=== PATIENT | male | born 1935 | race Caucasian/White ===

== ENCOUNTER 2018-01-29 22:38 | Inpatient (IN) | payer MEDICARE, OTHER ==
[~2018-01-29] VITALS: Ht 180.3 cm; Wt 115.0 kg
[2018-01-30 00:04] LABS: BASOPHILS % (AUTO) 0.4 % (0-1); EOSINOPHILS # (AUTO) 0.3 X10'3 (0-0.9); EOSINOPHILS % (AUTO) 4.8 % (0-6); HEMATOCRIT 45.2 % (42.0-52.0); HEMOGLOBIN 15.3 g/dl (14.0-17.9); LYMPHOCYTES # (AUTO) 1.8 X10'3 (1.1-4.8); LYMPHOCYTES % (AUTO) 28.4 % (21-51); MEAN CORPUSCULAR HEMOGLOBIN 31.3 PG (27.0-31.0); MEAN CORPUSCULAR VOLUME 92.3 FL (78-98); MEAN PLATELET VOLUME 9.8 FL (7.4-10.4); MONOCYTES # (AUTO) 0.6 X10'3 (0-0.9); MONOCYTES % (AUTO) 9.3 % (2-12); NEUTROPHILS # (AUTO) 3.7 X10'3 (1.8-7.7); NEUTROPHILS % (AUTO) 57.1 % (42-75); PLATELET COUNT 158 X10'3 (140-440); RED BLOOD COUNT 4.89 X10'6 (4.70-6.10); RED CELL DISTRIBUTION WIDTH 13.9 % (11.5-14.5); WHITE BLOOD COUNT 6.5 X10'3 (4.5-11.0)
[2018-01-30 00:19] LABS: ALANINE AMINOTRANSFERASE 25 U/L (12-78); ALBUMIN 3.3 G/DL (3.4-5.0); ALBUMIN/GLOBULIN RATIO 0.9 (1.1-1.5); ALKALINE PHOSPHATASE 48 IU/L (46-116); ANION GAP 6 (8-16); ASPARTATE AMINO TRANSFERASE 25 U/L (10-37); BILIRUBIN,TOTAL 0.6 MG/DL (0.1-1.0); BLOOD UREA NITROGEN 29 MG/DL (7-18); BUN/CREATININE RATIO 16.5 (5.4-32.0); CALCIUM 9.1 MG/DL (8.5-10.1); CHLORIDE 106 MMOL/L (99-107); CREATININE 1.76 MG/DL (0.60-1.10); GLUCOSE 111 MG/DL (70-104); SODIUM 143 MMOL/L (135-145); TOTAL CARBON DIOXIDE 30.8 MMOL/L (24-32); TOTAL PROTEIN 6.9 G/DL (6.4-8.2); eGFR 37 ML/MIN
[2018-01-30] MEDS ORDERED: aspirin 81mg tab.chew PO ONE (00:25)
[2018-01-30] MEDS ORDERED: enoxaparin 100mg/ml syringe SUBCUT ONE (00:30)
[2018-01-30 00:35] LABS: PARTIAL THROMBOPLASTIN TIME 27 SECONDS (22-32); PROTHROMBIN TIME 10.7 SECONDS (9.0-12.0)
[2018-01-30] MEDS ORDERED: acetaminophen 325mg tablet PO PRN ×2 (00:40)
[2018-01-30] MEDS ORDERED: nitroGLYCERIN 0.4mg SUBLingual tab SL PRN (00:40)
[2018-01-30] MEDS ORDERED: morphine 4 MG/ML inj SYRINge IV PRN ×2 (00:40)
[2018-01-30] MEDS ORDERED: XAL0.005OS EACHEYE (00:47)
[2018-01-30] MEDS ORDERED: DORZ10DR2 EACHEYE (00:47)
[2018-01-30 01:05] LABS: CHOL/HDL RATIO 4.7 (0.00-4.99); CHOLESTEROL 179 MG/DL (0-200); HDL CHOLESTEROL 38 MG/DL (35-60); LDL CHOLESTEROL 122 MG/DL (50-100); TRIGLYCERIDES 110 MG/DL (20-135)
[2018-01-30 01:06] LABS: HEMOGLOBIN A1C 5.4 % (4.5-6.2)
[2018-01-30 01:50] VITALS: BP 165/70
[2018-01-30 06:00] VITALS: BP 156/75
[2018-01-30] MEDS ORDERED: aspirin 325mg tablet PO SCH (08:00)
[2018-01-30] MEDS: metoprolol tartrate 12.5mg (1/2 tablet) PO SCH ×2 (08:00→19:58)
[2018-01-30] MEDS: atorvastatin 10mg tablet PO SCH (08:00)
[2018-01-30 08:33] LABS: BASOPHILS % (AUTO) 0.5 % (0-1); EOSINOPHILS # (AUTO) 0.3 X10'3 (0-0.9); EOSINOPHILS % (AUTO) 4.5 % (0-6); HEMATOCRIT 45.5 % (42.0-52.0); HEMOGLOBIN 15.4 g/dl (14.0-17.9); LYMPHOCYTES # (AUTO) 2.3 X10'3 (1.1-4.8); LYMPHOCYTES % (AUTO) 32.9 % (21-51); MEAN CORPUSCULAR HEMOGLOBIN 31.4 PG (27.0-31.0); MEAN CORPUSCULAR HGB CONC 33.8 % (33.0-36.5); MEAN CORPUSCULAR VOLUME 92.9 FL (78-98); MEAN PLATELET VOLUME 10.6 FL (7.4-10.4); MONOCYTES # (AUTO) 0.6 X10'3 (0-0.9); MONOCYTES % (AUTO) 8.9 % (2-12); NEUTROPHILS # (AUTO) 3.7 X10'3 (1.8-7.7); NEUTROPHILS % (AUTO) 53.2 % (42-75); PLATELET COUNT 152 X10'3 (140-440); RED CELL DISTRIBUTION WIDTH 14.1 % (11.5-14.5); WHITE BLOOD COUNT 6.9 X10'3 (4.5-11.0)
[2018-01-30] MEDS: enoxaparin 100mg/ml syringe SUBCUT SCH ×2 (08:39→20:11)
[2018-01-30] MEDS: aspirin 81mg tab.chew PO SCH (08:39)
[2018-01-30 08:40] LABS: ALBUMIN 3.2 G/DL (3.4-5.0); ANION GAP 10 (8-16); BLOOD UREA NITROGEN 26 MG/DL (7-18); BUN/CREATININE RATIO 16.3 (5.4-32.0); CALCIUM 8.7 MG/DL (8.5-10.1); CHLORIDE 107 MMOL/L (99-107); GLUCOSE 85 MG/DL (70-104); POTASSIUM 4.1 MMOL/L (3.5-5.1); SODIUM 142 MMOL/L (135-145); TOTAL CARBON DIOXIDE 25.1 MMOL/L (24-32); eGFR 42 ML/MIN
[2018-01-30] MEDS: losartan 50mg tablet PO SCH (08:50)
[2018-01-30 08:52] LABS: LARGE PLATELETS FEW; PLATELET ESTIMATE NORMAL
[2018-01-30] MEDS: normal saline 1000ml 1,000 ML IV SCH (09:20)
[2018-01-30 11:00] VITALS: BP 153/84
[2018-01-30 15:00] VITALS: BP 148/69
[2018-01-30 19:00] VITALS: BP 161/65
[2018-01-31] VITALS (15 sets, daily range): BP systolic 116–187; BP diastolic 61–87
[2018-01-31] MEDS: normal saline 1000ml 1,000 ML IV SCH ×2 (04:29→18:16)
[2018-01-31 05:18] LABS: BASOPHILS % (AUTO) 0.4 % (0-1); EOSINOPHILS # (AUTO) 0.3 X10'3 (0-0.9); EOSINOPHILS % (AUTO) 4.1 % (0-6); HEMATOCRIT 45.8 % (42.0-52.0); HEMOGLOBIN 15.4 g/dl (14.0-17.9); LYMPHOCYTES % (AUTO) 30.4 % (21-51); MEAN CORPUSCULAR HEMOGLOBIN 31.1 PG (27.0-31.0); MEAN CORPUSCULAR HGB CONC 33.6 % (33.0-36.5); MEAN CORPUSCULAR VOLUME 92.5 FL (78-98); MEAN PLATELET VOLUME 9.8 FL (7.4-10.4); MONOCYTES # (AUTO) 0.5 X10'3 (0-0.9); NEUTROPHILS # (AUTO) 3.7 X10'3 (1.8-7.7); NEUTROPHILS % (AUTO) 57.1 % (42-75); PLATELET COUNT 159 X10'3 (140-440); RED BLOOD COUNT 4.95 X10'6 (4.70-6.10); RED CELL DISTRIBUTION WIDTH 13.6 % (11.5-14.5); WHITE BLOOD COUNT 6.6 X10'3 (4.5-11.0)
[2018-01-31 06:20] LABS: ALANINE AMINOTRANSFERASE 23 U/L (12-78); ALBUMIN 3.1 G/DL (3.4-5.0); ALBUMIN/GLOBULIN RATIO 0.9 (1.1-1.5); ALKALINE PHOSPHATASE 45 IU/L (46-116); ANION GAP 8 (8-16); ASPARTATE AMINO TRANSFERASE 23 U/L (10-37); BILIRUBIN,TOTAL 0.9 MG/DL (0.1-1.0); BLOOD UREA NITROGEN 26 MG/DL (7-18); BUN/CREATININE RATIO 17.2 (5.4-32.0); CALCIUM 8.6 MG/DL (8.5-10.1); CHLORIDE 106 MMOL/L (99-107); CREATININE 1.51 MG/DL (0.60-1.10); GLUCOSE 99 MG/DL (70-104); PHOSPHORUS 3.1 MG/DL (2.3-4.5); POTASSIUM 3.9 MMOL/L (3.5-5.1); SODIUM 139 MMOL/L (135-145); TOTAL CARBON DIOXIDE 24.9 MMOL/L (24-32); TOTAL PROTEIN 6.7 G/DL (6.4-8.2); eGFR 45 ML/MIN
[2018-01-31] MEDS: enoxaparin 100mg/ml syringe SUBCUT SCH ×2 (07:10→20:07)
[2018-01-31] MEDS: metoprolol tartrate 12.5mg (1/2 tablet) PO SCH ×2 (07:35→20:08)
[2018-01-31] MEDS: aspirin 81mg tab.chew PO SCH (07:37)
[2018-01-31] MEDS: atorvastatin 10mg tablet PO SCH (07:38)
[2018-01-31] MEDS: losartan 50mg tablet PO SCH ×2 (07:38→13:21)
[2018-01-31] MEDS ORDERED: lisinopril 2.5mg tablet PO SCH (08:00)
[2018-01-31] MEDS ORDERED: losartan 50mg tablet PO SCH (08:00)
[2018-01-31] MEDS ORDERED: iohexol 350MG/ML 100ml bottle IV ONE (09:40)
[2018-01-31] MEDS ORDERED: LIDOcaine 1% (10mg/ml) 2ml vial ONE (09:40)
[2018-01-31] MEDS ORDERED: iohexol 350 MG/ML 50ML vial IV ONE (09:40)
[2018-01-31] MEDS ORDERED: midazolam 2 mg/2 ml injection ONE (10:00)
[2018-01-31] MEDS ORDERED: fentaNYL/PF 50MCG/1 ML 2ML syringe ONE (10:00)
[2018-01-31] MEDS ORDERED: diphenhydrAMINE 50 mg/ml inj ONE (10:00)
[2018-01-31] MEDS ORDERED: nitroGLYCERIN-Tridil 50MG/D5W 250 ML IV ONE (10:19)
[2018-01-31] MEDS ORDERED: hydrALAZINE 20mg/ml inj. IV ONE (10:29)
[2018-01-31] MEDS ORDERED: acetaminophen 325mg tablet PO PRN (11:20)
[2018-01-31] MEDS ORDERED: ondansetron/PF 4mg/2ml inj IV PRN (11:20)
[2018-01-31] MEDS ORDERED: OXAZEpam 15mg capsule PO PRN (11:20)
[2018-01-31] MEDS ORDERED: nitroGLYCERIN 0.4mg SUBLingual tab SL PRN (11:20)
[2018-01-31] MEDS ORDERED: HYDROcodone/acetaminophen 10/325mg tab PO PRN (11:20)
[2018-01-31] MEDS ORDERED: HYDROcodone/acetaminophen 5mg/325mg tablet PO PRN (11:20)
[2018-01-31] MEDS ORDERED: proCHLORperazine 10 MG/2 ml inj IV PRN (11:20)
[2018-01-31] MEDS ORDERED: MESSAGE TO NURSING PO ONE ×4 (16:15)
[2018-01-31 16:58] LABS: HEMATOCRIT 47.7 % (42.0-52.0); MEAN CORPUSCULAR HEMOGLOBIN 31.2 PG (27.0-31.0); MEAN CORPUSCULAR HGB CONC 33.5 % (33.0-36.5); MEAN CORPUSCULAR VOLUME 93.3 FL (78-98); PLATELET COUNT 171 X10'3 (140-440); RED BLOOD COUNT 5.11 X10'6 (4.70-6.10); RED CELL DISTRIBUTION WIDTH 13.8 % (11.5-14.5); WHITE BLOOD COUNT 6.8 X10'3 (4.5-11.0)
[2018-01-31 17:09] LABS: INR 1.1 INR; PARTIAL THROMBOPLASTIN TIME 28 SECONDS (22-32); PROTHROMBIN TIME 10.9 SECONDS (9.0-12.0)
[2018-01-31 17:14] LABS: ALBUMIN 3.2 G/DL (3.4-5.0); ANION GAP 9 (8-16); BILIRUBIN,TOTAL 0.9 MG/DL (0.1-1.0); BLOOD UREA NITROGEN 23 MG/DL (7-18); BUN/CREATININE RATIO 16.8 (5.4-32.0); CALCIUM 8.6 MG/DL (8.5-10.1); CHLORIDE 105 MMOL/L (99-107); CREATININE 1.37 MG/DL (0.60-1.10); GLUCOSE 97 MG/DL (70-104); POTASSIUM 3.9 MMOL/L (3.5-5.1); SODIUM 140 MMOL/L (135-145); TOTAL CARBON DIOXIDE 26.1 MMOL/L (24-32); TOTAL PROTEIN 6.8 G/DL (6.4-8.2); eGFR 50 ML/MIN
[2018-01-31 17:15] LABS: ALANINE AMINOTRANSFERASE 24 U/L (12-78); ALBUMIN/GLOBULIN RATIO 0.9 (1.1-1.5); ALKALINE PHOSPHATASE 45 IU/L (46-116); ASPARTATE AMINO TRANSFERASE 22 U/L (10-37)
[2018-01-31] MEDS: amLODIPine 2.5mg tablet PO SCH (20:00)
[2018-02-01 03:00] VITALS: BP 121/62
[2018-02-01 05:12] LABS: BASOPHILS % (AUTO) 0.3 % (0-1); EOSINOPHILS # (AUTO) 0.3 X10'3 (0-0.9); EOSINOPHILS % (AUTO) 3.6 % (0-6); HEMATOCRIT 44.7 % (42.0-52.0); LYMPHOCYTES # (AUTO) 1.9 X10'3 (1.1-4.8); LYMPHOCYTES % (AUTO) 25.9 % (21-51); MEAN CORPUSCULAR HEMOGLOBIN 31.2 PG (27.0-31.0); MEAN CORPUSCULAR HGB CONC 33.5 % (33.0-36.5); MEAN CORPUSCULAR VOLUME 93.2 FL (78-98); MEAN PLATELET VOLUME 9.5 FL (7.4-10.4); MONOCYTES # (AUTO) 0.5 X10'3 (0-0.9); MONOCYTES % (AUTO) 7.4 % (2-12); NEUTROPHILS # (AUTO) 4.5 X10'3 (1.8-7.7); NEUTROPHILS % (AUTO) 62.8 % (42-75); PLATELET COUNT 157 X10'3 (140-440); RED CELL DISTRIBUTION WIDTH 13.9 % (11.5-14.5); WHITE BLOOD COUNT 7.2 X10'3 (4.5-11.0)
[2018-02-01 05:34] LABS: ANION GAP 10 (8-16); BLOOD UREA NITROGEN 23 MG/DL (7-18); BUN/CREATININE RATIO 14.4 (5.4-32.0); CALCIUM 8.4 MG/DL (8.5-10.1); CHLORIDE 106 MMOL/L (99-107); GLUCOSE 92 MG/DL (70-104); SODIUM 140 MMOL/L (135-145); TOTAL CARBON DIOXIDE 24.5 MMOL/L (24-32); eGFR 42 ML/MIN
[2018-02-01 06:30] VITALS: BP 148/74
[2018-02-01] MEDS: enoxaparin 100mg/ml syringe SUBCUT SCH (07:17)
[2018-02-01] MEDS ORDERED: vancomycin/NS 1 GM ADD-VANTAGE 250 ML IV ONE (08:00)
[2018-02-01] MEDS ORDERED: cefazolin/dext.iso 2gm/50ml 50 ML IV ONE (08:00)
[2018-02-01] MEDS: metoprolol tartrate 12.5mg (1/2 tablet) PO SCH (08:00)
[2018-02-01] MEDS: amLODIPine 2.5mg tablet PO SCH ×2 (08:47→20:59)
[2018-02-01] MEDS: atorvastatin 10mg tablet PO SCH (08:47)
[2018-02-01] MEDS: aspirin 81mg tab.chew PO SCH (08:48)
[2018-02-01] MEDS: losartan 50mg tablet PO SCH (08:48)
[2018-02-01] MEDS ORDERED: MESSAGE TO NURSING PO ONE (10:00)
[2018-02-01 11:00] VITALS: BP 132/53
[2018-02-01] MEDS ORDERED: ringers solution, lacted 1,000 ML IV ONE (11:33)
[2018-02-01] MEDS: normal saline 1000ml 1,000 ML IV SCH (13:19)
[2018-02-01 15:00] VITALS: BP 157/67
[2018-02-01 19:00] VITALS: BP 158/61
[2018-02-01] MEDS: DORZOLAMIDE 2% EACHEYE SCH (20:00)
[2018-02-01] MEDS: OPTH EACHEYE SCH ×2 (20:00→20:59)
[2018-02-01] MEDS: XALATAN 0.005% EACHEYE SCH (20:59)
[2018-02-01 22:00] VITALS: BP 149/72
[2018-02-02 02:00] VITALS: BP 127/46
[2018-02-02 05:14] LABS: BASOPHILS % (AUTO) 0.4 % (0-1); EOSINOPHILS # (AUTO) 0.3 X10'3 (0-0.9); EOSINOPHILS % (AUTO) 3.9 % (0-6); HEMATOCRIT 44.4 % (42.0-52.0); HEMOGLOBIN 15.1 g/dl (14.0-17.9); LYMPHOCYTES # (AUTO) 1.8 X10'3 (1.1-4.8); LYMPHOCYTES % (AUTO) 23.6 % (21-51); MEAN CORPUSCULAR HEMOGLOBIN 31.5 PG (27.0-31.0); MEAN CORPUSCULAR VOLUME 92.7 FL (78-98); MEAN PLATELET VOLUME 9.7 FL (7.4-10.4); MONOCYTES # (AUTO) 0.7 X10'3 (0-0.9); MONOCYTES % (AUTO) 8.7 % (2-12); NEUTROPHILS # (AUTO) 4.8 X10'3 (1.8-7.7); NEUTROPHILS % (AUTO) 63.4 % (42-75); PLATELET COUNT 148 X10'3 (140-440); RED CELL DISTRIBUTION WIDTH 13.6 % (11.5-14.5); WHITE BLOOD COUNT 7.5 X10'3 (4.5-11.0)
[2018-02-02 05:29] LABS: PROTHROMBIN TIME 10.6 SECONDS (9.0-12.0)
[2018-02-02] MEDS ORDERED: vancomycin/NS 1 GM ADD-VANTAGE 250 ML IV ONE (05:30)
[2018-02-02] MEDS ORDERED: Cefazolin 2GM/100ML NS IVPB 100 ML IV ONE (05:30)
[2018-02-02 05:36] LABS: ALBUMIN 3.2 G/DL (3.4-5.0); ANION GAP 7 (8-16); BLOOD UREA NITROGEN 20 MG/DL (7-18); BUN/CREATININE RATIO 12.3 (5.4-32.0); CALCIUM 8.9 MG/DL (8.5-10.1); CHLORIDE 107 MMOL/L (99-107); CREATININE 1.63 MG/DL (0.60-1.10); GLUCOSE 98 MG/DL (70-104); POTASSIUM 4.3 MMOL/L (3.5-5.1); SODIUM 142 MMOL/L (135-145); TOTAL CARBON DIOXIDE 28.5 MMOL/L (24-32); eGFR 41 ML/MIN
[2018-02-02 06:00] VITALS: BP 148/65
[2018-02-02] MEDS ORDERED: famotidine 20mg tablet PO ONE ×2 (06:00→17:55)
[2018-02-02] MEDS ORDERED: LORazepam 2 mg/ml vial IV ONE (06:00)
[2018-02-02] MEDS ORDERED: ringers solution, lacted 1,000 ML IV SCH (06:00)
[2018-02-02] MEDS ORDERED: levoTHYROXINE 25mcg tablet PO SCH (07:00)
[2018-02-02] MEDS: amLODIPine 2.5mg tablet PO SCH ×2 (07:02→20:00)
[2018-02-02] MEDS: losartan 50mg tablet PO SCH (07:02)
[2018-02-02] MEDS: atorvastatin 10mg tablet PO SCH (07:24)
[2018-02-02] MEDS: OPTH EACHEYE SCH ×3 (07:25→21:00)
[2018-02-02] MEDS: DORZOLAMIDE 2% EACHEYE SCH ×2 (07:25→20:00)
[2018-02-02] MEDS: aspirin 81mg tab.chew PO SCH (07:30)
[2018-02-02] MEDS ORDERED: mupirocin 2% ointment 22GM NS SCH (08:00)
[2018-02-02] MEDS: insulin regular, human 100 UNITS in normal saline 100ml IV soln 99 ML IV SCH ×2 (09:08)
[2018-02-02] MEDS ORDERED: insulin Lispro (HumaLOG) vial - multi-dose SQ PRN (09:10)
[2018-02-02] MEDS ORDERED: dextrose 50%-water 50ml dispensing syringe IV PRN ×2 (09:10→23:25)
[2018-02-02 10:08] VITALS: BP 170/75
[2018-02-02 11:00] VITALS: BP 147/69
[2018-02-02 15:00] VITALS: BP 162/70
[2018-02-02] MEDS: normal saline 1000ml 1,000 ML IV SCH (16:08)
[2018-02-02] MEDS ORDERED: MIDAZolam 1mg/ml 10ml vial ONE (17:36)
[2018-02-02] MEDS ORDERED: SUFENTANIL CITRATE 50 MCG/ML 2ml ampule IV ONE (17:36)
[2018-02-02] MEDS ORDERED: propofol inj 20 ML IV ONE (17:39)
[2018-02-02] MEDS ORDERED: pancuronium br 1mg/ml inj IV ONE (17:39)
[2018-02-02] MEDS ORDERED: albumin (Human) 5% 250ml 250 ML IV ONE ×3 (17:39→23:26)
[2018-02-02] MEDS ORDERED: LIDOcaine 2% (20mg/ml) 5ml vial ONE (17:39)
[2018-02-02] MEDS ORDERED: aminocaproic acid 250 MG/1 ML inj. ONE (18:15)
[2018-02-02] MEDS ORDERED: sevoflurane 250ml liquid IH ONE (18:15)
[2018-02-02] MEDS ORDERED: papaverine 30 mg/ml 2ml inj. IA ONE (19:00)
[2018-02-02] MEDS ORDERED: heparin 10,000 units/1 ML INJ IR ONE (19:00)
[2018-02-02 19:06] LABS: ABG BASE EXCESS -1.7 mmol/L (-2.0-3.0); ABG HCO3 21.5 mmol/L (22.0-26.0); ABG OXYGEN SATURATION 99.6 % (95-98); ABG PCO2 32.4 mmHg (35.0-45.0); CL (ABG) 107 mmol/L (99-107); FCOHb 0.9 % (0.5-1.5); FMetHb 0.4 % (0.3-1.12); FO2Hb 98.3 % (94-100); GLUCOSE (ABG) 87 mg/dl (70-105); K (ABG) 3.8 mmol/L (3.3-5.1); NA (ABG) 137 mmol/L (135-145); TOTAL HEMOGLOBIN 14.2 G/dl (14.0-18.0)
[2018-02-02 19:16] LABS: ACT @ 1.70 U 310 SEC (193-297); ACT @ 2.84 U 457 SEC (260-420); BASELINE ACT 161 SEC (101-148)
[2018-02-02 20:00] LABS: ABG BASE EXCESS VENOUS -2.7 mmol/L; ABG HCO3 VENOUS 21.9 mmol/L; ABG PCO2 VENOUS 37.7 mmHg; ABG PO2 VENOUS 46.3 mmHg; CL (ABG) 106 mmol/L (99-107); FHHb VENOUS 16.2 %; FMetHb VENOUS 0.2 %; FO2Hb VENOUS 82.6 %; GLUCOSE (ABG) 93 mg/dl (70-105); IONIZED CA (ABG) 1.11 mmol/L (1.03-1.32); NA (ABG) 137 mmol/L (135-145); TOTAL HEMOGLOBIN 13.8 G/dl (14.0-18.0)
[2018-02-02 20:30] LABS: ABG BASE EXCESS -2.7 mmol/L (-2.0-3.0); ABG HCO3 20.7 mmol/L (22.0-26.0); ABG OXYGEN SATURATION 99.3 % (95-98); ABG PCO2 31.1 mmHg (35.0-45.0); ABG PH 7.441 (7.350-7.450); ABG PO2 359.6 mmHg (60.0-100.0); CL (ABG) 105 mmol/L (99-107); FCOHb 0.3 % (0.5-1.5); FMetHb 0.3 % (0.3-1.12); FO2Hb 98.7 % (94-100); GLUCOSE (ABG) 89 mg/dl (70-105); IONIZED CA (ABG) 1.01 mmol/L (1.03-1.32); K (ABG) 4.9 mmol/L (3.3-5.1); NA (ABG) 133 mmol/L (135-145); TOTAL HEMOGLOBIN 10.7 G/dl (14.0-18.0)
[2018-02-02 20:45] LABS: ABG BASE EXCESS -0.1 mmol/L (-2.0-3.0); ABG HCO3 24.1 mmol/L (22.0-26.0); ABG OXYGEN SATURATION 99.2 % (95-98); ABG PCO2 37.5 mmHg (35.0-45.0); ABG PH 7.425 (7.350-7.450); ABG PO2 347.1 mmHg (60.0-100.0); CL (ABG) 106 mmol/L (99-107); FMetHb 0.5 % (0.3-1.12); FO2Hb 98.7 % (94-100); GLUCOSE (ABG) 96 mg/dl (70-105); IONIZED CA (ABG) 1.02 mmol/L (1.03-1.32); K (ABG) 4.9 mmol/L (3.3-5.1); NA (ABG) 134 mmol/L (135-145); TOTAL HEMOGLOBIN 10.7 G/dl (14.0-18.0)
[2018-02-02 20:55] LABS: ABG BASE EXCESS -0.5 mmol/L (-2.0-3.0); ABG OXYGEN SATURATION 99.2 % (95-98); ABG PCO2 38.5 mmHg (35.0-45.0); ABG PH 7.412 (7.350-7.450); CL (ABG) 106 mmol/L (99-107); FCOHb 0.1 % (0.5-1.5); FMetHb 0.5 % (0.3-1.12); FO2Hb 98.6 % (94-100); GLUCOSE (ABG) 104 mg/dl (70-105); IONIZED CA (ABG) 1.03 mmol/L (1.03-1.32); K (ABG) 4.7 mmol/L (3.3-5.1); NA (ABG) 135 mmol/L (135-145)
[2018-02-02] MEDS: XALATAN 0.005% EACHEYE SCH (21:00)
[2018-02-02 21:11] LABS: ABG BASE EXCESS VENOUS -1.4 mmol/L; ABG HCO3 VENOUS 23.6 mmol/L; ABG PCO2 VENOUS 40.6 mmHg; ABG PO2 VENOUS 51.8 mmHg; CL (ABG) 105 mmol/L (99-107); FCOHb VENOUS 0.3 %; FHHb VENOUS 12.8 %; FMetHb VENOUS 0.4 %; FO2Hb VENOUS 86.5 %; GLUCOSE (ABG) 114 mg/dl (70-105); IONIZED CA (ABG) 0.83 mmol/L (1.03-1.32); K (ABG) 4.6 mmol/L (3.3-5.1); NA (ABG) 136 mmol/L (135-145); TOTAL HEMOGLOBIN 11.1 G/dl (14.0-18.0)
[2018-02-02 21:31] LABS: ABG BASE EXCESS -1.3 mmol/L (-2.0-3.0); ABG HCO3 23.6 mmol/L (22.0-26.0); ABG OXYGEN SATURATION 99.2 % (95-98); ABG PCO2 39.8 mmHg (35.0-45.0); ABG PO2 354.4 mmHg (60.0-100.0); CL (ABG) 107 mmol/L (99-107); FCOHb 0.2 % (0.5-1.5); FMetHb 0.5 % (0.3-1.12); FO2Hb 98.5 % (94-100); GLUCOSE (ABG) 131 mg/dl (70-105); IONIZED CA (ABG) 1.05 mmol/L (1.03-1.32); K (ABG) 4.7 mmol/L (3.3-5.1); NA (ABG) 136 mmol/L (135-145); TOTAL HEMOGLOBIN 11.3 G/dl (14.0-18.0)
[2018-02-02 21:55] LABS: ABG BASE EXCESS -2.5 mmol/L (-2.0-3.0); ABG HCO3 22.2 mmol/L (22.0-26.0); ABG OXYGEN SATURATION 99.1 % (95-98); ABG PCO2 38.2 mmHg (35.0-45.0); ABG PH 7.383 (7.350-7.450); ABG PO2 229.9 mmHg (60.0-100.0); CL (ABG) 107 mmol/L (99-107); FCOHb 0.3 % (0.5-1.5); FMetHb 0.5 % (0.3-1.12); FO2Hb 98.3 % (94-100); GLUCOSE (ABG) 141 mg/dl (70-105); IONIZED CA (ABG) 1.06 mmol/L (1.03-1.32); K (ABG) 4.8 mmol/L (3.3-5.1); NA (ABG) 134 mmol/L (135-145); TOTAL HEMOGLOBIN 11.2 G/dl (14.0-18.0)
[2018-02-02 22:35] LABS: ABG BASE EXCESS VENOUS -1.4 mmol/L; ABG HCO3 VENOUS 23.6 mmol/L; ABG PCO2 VENOUS 40.6 mmHg; ABG PO2 VENOUS 39.1 mmHg; CL (ABG) 106 mmol/L (99-107); FCOHb VENOUS 0.7 %; FHHb VENOUS 25.5 %; FMetHb VENOUS 0.6 %; FO2Hb VENOUS 73.2 %; GLUCOSE (ABG) 153 mg/dl (70-105); IONIZED CA (ABG) 1.23 mmol/L (1.03-1.32); K (ABG) 4.5 mmol/L (3.3-5.1); NA (ABG) 135 mmol/L (135-145); TOTAL HEMOGLOBIN 11.5 G/dl (14.0-18.0)
[2018-02-02] MEDS ORDERED: niCARDipine/sod cl 20mg/200ml 200 ML IV PRN (23:21)
[2018-02-02] MEDS ORDERED: nitroGLYCERIN-Tridil 50MG/D5W 250 ML IV PRN (23:21)
[2018-02-02] MEDS ORDERED: sodium chloride 0.45% 1,000 ML IV SCH (23:21)
[2018-02-02] MEDS ORDERED: DOPamine 400mg/D5W 250ml 250 ML IV PRN (23:21)
[2018-02-02] MEDS ORDERED: albumin (Human) 5% 250ml 250 ML IV PRN (23:25)
[2018-02-02] MEDS ORDERED: magnesium 2GM in 50ml NS 50 ML IV PRN (23:25)
[2018-02-02] MEDS ORDERED: ondansetron/PF 4mg/2ml inj IV PRN (23:25)
[2018-02-02] MEDS ORDERED: morphine 4 MG/ML inj SYRINge IV PRN (23:25)
[2018-02-02] MEDS ORDERED: normal saline 250ml IV soln 250 ML IV PRN (23:25)
[2018-02-02] MEDS ORDERED: potassium Cl 20mEq/100mL bag 100 ML IV PRN ×3 (23:25)
[2018-02-02] MEDS ORDERED: HYDROcodone/acetaminophen 10/325mg tab PO PRN (23:25)
[2018-02-02] MEDS ORDERED: sodium phosphate inj. 15 MMOL in dextrose 5%-water 150 ML IV PRN (23:25)
[2018-02-02] MEDS ORDERED: sodium phosphate inj. 30 MMOL in dextrose 5%-water 250 ML IV PRN (23:25)
[2018-02-02] MEDS ORDERED: magnesium 4gm in 100ml NS 100 ML IV PRN (23:25)
[2018-02-02] MEDS ORDERED: metoclopramide 5 mg/ml inj IV PRN (23:25)
[2018-02-02] MEDS ORDERED: insulin regular, human inj. 100 UNITS in normal saline 100ml IV soln 100 ML IV SCH ×2 (23:25)
[2018-02-02] MEDS ORDERED: Neutra Phos packet PO PRN (23:25)
[2018-02-02 23:34] VITALS: BP 84/52
[2018-02-02 23:51] LABS: BASOPHILS % (AUTO) 0.2 % (0-1); EOSINOPHILS % (AUTO) 0.3 % (0-6); HEMATOCRIT 36.7 % (42.0-52.0); HEMOGLOBIN 12.6 g/dl (14.0-17.9); LYMPHOCYTES # (AUTO) 0.6 X10'3 (1.1-4.8); LYMPHOCYTES % (AUTO) 4.2 % (21-51); MEAN CORPUSCULAR HEMOGLOBIN 31.5 PG (27.0-31.0); MEAN CORPUSCULAR HGB CONC 34.2 % (33.0-36.5); MEAN CORPUSCULAR VOLUME 91.9 FL (78-98); MEAN PLATELET VOLUME 9.6 FL (7.4-10.4); MONOCYTES # (AUTO) 0.4 X10'3 (0-0.9); NEUTROPHILS # (AUTO) 13.1 X10'3 (1.8-7.7); NEUTROPHILS % (AUTO) 92.3 % (42-75); PLATELET COUNT 86 X10'3 (140-440); RED BLOOD COUNT 3.99 X10'6 (4.70-6.10); RED CELL DISTRIBUTION WIDTH 13.7 % (11.5-14.5); WHITE BLOOD COUNT 14.2 X10'3 (4.5-11.0)
[2018-02-03] VITALS (24 sets, daily range): BP systolic 100–144; BP diastolic 44–73
[2018-02-03] MEDS ORDERED: cefazolin/dext.iso 2gm/50ml 50 ML IV SCH
[2018-02-03 00:01] LABS: ABG BASE EXCESS -3.8 mmol/L (-2.0-3.0); ABG HCO3 21.2 mmol/L (22.0-26.0); ABG OXYGEN SATURATION 95.5 % (95-98); ABG PCO2 (T) 36.9 mmHg (35.0-48.0); ABG PH (T) 7.373 (7.350-7.450); FCOHb 0.1 % (0.5-1.5); FMetHb 0.1 % (0.3-1.12); FO2Hb 95.3 % (94-100); MINUTE VOLUME 9 L/min; PEEP 5 cm H2O; RESPIRATORY RATE 12 b/min; RESPIRATORY RATE (OBSERVED) 12 b/min; TIDAL VOLUME 700 mL
[2018-02-03 00:04] LABS: INR 1.3 INR; PARTIAL THROMBOPLASTIN TIME 34 SECONDS (22-32)
[2018-02-03 00:06] LABS: ANION GAP 12 (8-16); BILIRUBIN,TOTAL 1.2 MG/DL (0.1-1.0); BLOOD UREA NITROGEN 19 MG/DL (7-18); CHLORIDE 108 MMOL/L (99-107); CREATININE 1.36 MG/DL (0.60-1.10); GLUCOSE 132 MG/DL (70-104); MAGNESIUM 3.2 MG/DL (1.5-2.4); PHOSPHORUS 2.5 MG/DL (2.3-4.5); SODIUM 142 MMOL/L (135-145); TOTAL CARBON DIOXIDE 22.2 MMOL/L (24-32); eGFR 50 ML/MIN
[2018-02-03 00:07] LABS: ALANINE AMINOTRANSFERASE 17 U/L (12-78); ALBUMIN 2.8 G/DL (3.4-5.0); ALBUMIN/GLOBULIN RATIO 1.6 (1.1-1.5); ALKALINE PHOSPHATASE 26 IU/L (46-116); ASPARTATE AMINO TRANSFERASE 37 U/L (10-37); TOTAL PROTEIN 4.6 G/DL (6.4-8.2)
[2018-02-03 00:08] LABS: POTASSIUM 4.1 MMOL/L (3.5-5.1)
[2018-02-03] MEDS ORDERED: DOPamine 400mg/D5W 250ml 250 ML IV SCH (00:55)
[2018-02-03] MEDS: insulin regular, human 100 UNITS in normal saline 100ml IV soln 99 ML IV SCH ×12 (01:09→06:01)
[2018-02-03] MEDS: morphine 4 MG/ML inj SYRINge IV PRN ×2 (01:50→03:21)
[2018-02-03 04:40] LABS: ABG BASE EXCESS -3.5 mmol/L (-2.0-3.0); ABG HCO3 21.1 mmol/L (22.0-26.0); ABG OXYGEN SATURATION 93.3 % (95-98); ABG PCO2 (T) 35.2 mmHg (35.0-48.0); ABG PH (T) 7.391 (7.350-7.450); ABG PO2 (T) 60.4 mmHg (83-108); FCOHb 0.4 % (0.5-1.5); FO2Hb 92.9 % (94-100); MINUTE VOLUME 9 L/min; PEEP 5 cm H2O; RESPIRATORY RATE 12 b/min; RESPIRATORY RATE (OBSERVED) 12 b/min; TIDAL VOLUME 700 mL; TOTAL HEMOGLOBIN 13.9 G/dl (14.0-18.0)
[2018-02-03 04:47] LABS: BASOPHILS % (AUTO) 0.1 % (0-1); EOSINOPHILS # (AUTO) 0.2 X10'3 (0-0.9); EOSINOPHILS % (AUTO) 1.4 % (0-6); HEMOGLOBIN 13.6 g/dl (14.0-17.9); LYMPHOCYTES # (AUTO) 0.4 X10'3 (1.1-4.8); MEAN CORPUSCULAR HEMOGLOBIN 31.4 PG (27.0-31.0); MEAN CORPUSCULAR HGB CONC 33.9 % (33.0-36.5); MEAN CORPUSCULAR VOLUME 92.6 FL (78-98); MEAN PLATELET VOLUME 9.6 FL (7.4-10.4); MONOCYTES # (AUTO) 0.5 X10'3 (0-0.9); MONOCYTES % (AUTO) 3.2 % (2-12); NEUTROPHILS # (AUTO) 13.3 X10'3 (1.8-7.7); NEUTROPHILS % (AUTO) 92.3 % (42-75); PLATELET COUNT 100 X10'3 (140-440); RED BLOOD COUNT 4.32 X10'6 (4.70-6.10); RED CELL DISTRIBUTION WIDTH 13.3 % (11.5-14.5); WHITE BLOOD COUNT 14.4 X10'3 (4.5-11.0)
[2018-02-03 04:58] LABS: INR 1.1 INR; PARTIAL THROMBOPLASTIN TIME 30 SECONDS (22-32); PROTHROMBIN TIME 11.5 SECONDS (9.0-12.0)
[2018-02-03 05:02] LABS: ALANINE AMINOTRANSFERASE 24 U/L (12-78); ALBUMIN 3.6 G/DL (3.4-5.0); ALBUMIN/GLOBULIN RATIO 1.8 (1.1-1.5); ALKALINE PHOSPHATASE 31 IU/L (46-116); ANION GAP 10 (8-16); ASPARTATE AMINO TRANSFERASE 55 U/L (10-37); BILIRUBIN,TOTAL 1.9 MG/DL (0.1-1.0); BLOOD UREA NITROGEN 22 MG/DL (7-18); BUN/CREATININE RATIO 12.9 (5.4-32.0); CALCIUM 8.5 MG/DL (8.5-10.1); CHLORIDE 109 MMOL/L (99-107); GLUCOSE 166 MG/DL (70-104); SODIUM 142 MMOL/L (135-145); TOTAL CARBON DIOXIDE 23.2 MMOL/L (24-32); TOTAL PROTEIN 5.6 G/DL (6.4-8.2); eGFR 39 ML/MIN
[2018-02-03 05:26] LABS: ACTIVATED CLOTTING TIME 122 SEC (101-148)
[2018-02-03] MEDS: pantoprazole 40mg Tablet.DR PO SCH (07:30)
[2018-02-03] MEDS: ceFAZolin inj. 2,000 MG in normal saline 100ml IV soln 100 ML IV SCH ×2 (07:35→15:54)
[2018-02-03] MEDS: docusate sod 100mg capsule PO SCH ×2 (07:54→20:00)
[2018-02-03] MEDS: metoprolol tartrate 12.5mg (1/2 tablet) PO SCH ×2 (07:55→19:31)
[2018-02-03] MEDS: OPTH EACHEYE SCH ×3 (08:00→20:02)
[2018-02-03] MEDS: DORZOLAMIDE 2% EACHEYE SCH ×2 (08:00→20:02)
[2018-02-03] MEDS: vancomycin/NS 1 GM ADD-VANTAGE 250 ML IV SCH ×2 (08:41→20:00)
[2018-02-03] MEDS: aspirin 325mg tablet, delayed-release (Ecotrin) PO SCH (08:41)
[2018-02-03] MEDS: atorvastatin 10mg tablet PO SCH (08:41)
[2018-02-03] MEDS: lactobacillus rhamnosus 10,000 MMU CELLS/CAPSULE PO SCH ×2 (08:41→20:01)
[2018-02-03] MEDS: insulin Lispro (HumaLOG) vial - multi-dose SQ SCH ×3 (09:00→17:28)
[2018-02-03] MEDS: mupirocin 2% ointment 22GM NS SCH ×2 (09:46→20:00)
[2018-02-03 10:36] LABS: ABG BASE EXCESS -4.7 mmol/L (-2.0-3.0); ABG HCO3 20.3 mmol/L (22.0-26.0); ABG OXYGEN SATURATION 96.1 % (95-98); ABG PCO2 (T) 35.7 mmHg (35.0-48.0); ABG PH (T) 7.367 (7.350-7.450); ABG PO2 (T) 79.2 mmHg (83-108); FCOHb 0.3 % (0.5-1.5); FMetHb 0.3 % (0.3-1.12); FO2Hb 95.5 % (94-100); PEEP 5 cm H2O; TOTAL HEMOGLOBIN 12.5 G/dl (14.0-18.0)
[2018-02-03] MEDS: HYDROcodone/acetaminophen 10/325mg tab PO PRN (19:11)
[2018-02-03] MEDS: XALATAN 0.005% EACHEYE SCH (20:01)
[2018-02-04] VITALS (14 sets, daily range): BP systolic 101–140; BP diastolic 41–66
[2018-02-04] MEDS: ceFAZolin inj. 2,000 MG in normal saline 100ml IV soln 100 ML IV SCH (00:05)
[2018-02-04] MEDS: HYDROcodone/acetaminophen 10/325mg tab PO PRN (04:35)
[2018-02-04 05:43] LABS: BASOPHILS % (AUTO) 0 % (0-1); EOSINOPHILS # (AUTO) 0.2 X10'3 (0-0.9); EOSINOPHILS % (AUTO) 1.1 % (0-6); HEMATOCRIT 31.5 % (42.0-52.0); HEMOGLOBIN 10.4 g/dl (14.0-17.9); LYMPHOCYTES # (AUTO) 0.8 X10'3 (1.1-4.8); LYMPHOCYTES % (AUTO) 3.9 % (21-51); MEAN CORPUSCULAR HEMOGLOBIN 31.3 PG (27.0-31.0); MEAN CORPUSCULAR HGB CONC 33.2 % (33.0-36.5); MEAN CORPUSCULAR VOLUME 94.3 FL (78-98); MEAN PLATELET VOLUME 11.4 FL (7.4-10.4); MONOCYTES # (AUTO) 1.2 X10'3 (0-0.9); MONOCYTES % (AUTO) 5.6 % (2-12); NEUTROPHILS # (AUTO) 18.6 X10'3 (1.8-7.7); NEUTROPHILS % (AUTO) 89.4 % (42-75); PLATELET COUNT 81 X10'3 (140-440); RED BLOOD COUNT 3.34 X10'6 (4.70-6.10); RED CELL DISTRIBUTION WIDTH 13.9 % (11.5-14.5); WHITE BLOOD COUNT 20.8 X10'3 (4.5-11.0)
[2018-02-04 06:21] LABS: PLATELET ESTIMATE DECREASED; TOTAL CELLS COUNTED 100
[2018-02-04 06:22] LABS: LARGE PLATELETS FEW
[2018-02-04 06:25] LABS: ALBUMIN 3.1 G/DL (3.4-5.0); ANION GAP 11 (8-16); BLOOD UREA NITROGEN 32 MG/DL (7-18); BUN/CREATININE RATIO 16.7 (5.4-32.0); CALCIUM 7.9 MG/DL (8.5-10.1); CHLORIDE 108 MMOL/L (99-107); CREATININE 1.92 MG/DL (0.60-1.10); GLUCOSE 149 MG/DL (70-104); MAGNESIUM 2.7 MG/DL (1.5-2.4); POTASSIUM 4.4 MMOL/L (3.5-5.1); SODIUM 140 MMOL/L (135-145); TOTAL CARBON DIOXIDE 21.5 MMOL/L (24-32); eGFR 34 ML/MIN
[2018-02-04] MEDS: insulin Lispro (HumaLOG) vial - multi-dose SQ SCH ×2 (06:54→07:55)
[2018-02-04] MEDS: DORZOLAMIDE 2% EACHEYE SCH ×2 (07:07→19:38)
[2018-02-04] MEDS: OPTH EACHEYE SCH ×3 (07:07→19:38)
[2018-02-04] MEDS ORDERED: potassium Cl 20mEq/100mL bag 100 ML IV PRN (07:35)
[2018-02-04] MEDS ORDERED: magnesium Cl slow-release 64mg tablet PO PRN (07:35)
[2018-02-04] MEDS: docusate sod 100mg capsule PO SCH ×2 (07:35→19:37)
[2018-02-04] MEDS ORDERED: magnesium 2GM in 50ml NS 50 ML IV PRN (07:35)
[2018-02-04] MEDS ORDERED: potassium Cl 40MEQ/NS 500ml 500 ML IV PRN ×2 (07:35)
[2018-02-04] MEDS ORDERED: potassium Cl 20 mEq SR tablet PO PRN ×2 (07:35)
[2018-02-04] MEDS: atorvastatin 10mg tablet PO SCH (07:35)
[2018-02-04] MEDS: aspirin 325mg tablet, delayed-release (Ecotrin) PO SCH (07:35)
[2018-02-04] MEDS: pantoprazole 40mg Tablet.DR PO SCH (07:35)
[2018-02-04] MEDS ORDERED: magnesium 4gm in 100ml NS 100 ML IV PRN (07:35)
[2018-02-04] MEDS: potassium Cl 20 mEq SR tablet PO SCH ×2 (07:50→19:13)
[2018-02-04] MEDS: K and/or MAG REPLACEMENT MC SCH (07:50)
[2018-02-04] MEDS: magnesium Cl slow-release 64mg tablet PO SCH ×2 (07:50→19:13)
[2018-02-04] MEDS: lactobacillus rhamnosus 10,000 MMU CELLS/CAPSULE PO SCH ×2 (08:04→19:38)
[2018-02-04] MEDS: magnesium hydroxide 30ml (MOM) UD suspension PO PRN (11:24)
[2018-02-04] MEDS: Protein Shake (high protein) 240ml (8oz) cup PO SCH (18:00)
[2018-02-04] MEDS: XALATAN 0.005% EACHEYE SCH (19:38)
[2018-02-05 02:00] VITALS: BP 118/50
[2018-02-05 06:00] VITALS: BP 116/60
[2018-02-05 06:48] LABS: BASOPHILS % (AUTO) 0 % (0-1); EOSINOPHILS # (AUTO) 0.2 X10'3 (0-0.9); HEMATOCRIT 29.6 % (42.0-52.0); HEMOGLOBIN 10.1 g/dl (14.0-17.9); LYMPHOCYTES # (AUTO) 1.3 X10'3 (1.1-4.8); LYMPHOCYTES % (AUTO) 7.6 % (21-51); MEAN CORPUSCULAR HEMOGLOBIN 31.7 PG (27.0-31.0); MEAN CORPUSCULAR VOLUME 93.3 FL (78-98); MEAN PLATELET VOLUME 11.6 FL (7.4-10.4); MONOCYTES # (AUTO) 1.5 X10'3 (0-0.9); MONOCYTES % (AUTO) 8.8 % (2-12); NEUTROPHILS # (AUTO) 13.8 X10'3 (1.8-7.7); NEUTROPHILS % (AUTO) 82.6 % (42-75); PLATELET COUNT 83 X10'3 (140-440); RED BLOOD COUNT 3.18 X10'6 (4.70-6.10); RED CELL DISTRIBUTION WIDTH 14.4 % (11.5-14.5); WHITE BLOOD COUNT 16.7 X10'3 (4.5-11.0)
[2018-02-05 07:08] LABS: ANION GAP 9 (8-16); BLOOD UREA NITROGEN 44 MG/DL (7-18); BUN/CREATININE RATIO 23.3 (5.4-32.0); CALCIUM 7.9 MG/DL (8.5-10.1); CHLORIDE 107 MMOL/L (99-107); CREATININE 1.89 MG/DL (0.60-1.10); GLUCOSE 126 MG/DL (70-104); MAGNESIUM 2.7 MG/DL (1.5-2.4); SODIUM 141 MMOL/L (135-145); TOTAL CARBON DIOXIDE 25.2 MMOL/L (24-32); eGFR 34 ML/MIN
[2018-02-05] MEDS: atorvastatin 10mg tablet PO SCH (07:41)
[2018-02-05] MEDS: docusate sod 100mg capsule PO SCH ×2 (07:41→19:50)
[2018-02-05] MEDS: pantoprazole 40mg Tablet.DR PO SCH (07:41)
[2018-02-05] MEDS: aspirin 325mg tablet, delayed-release (Ecotrin) PO SCH (07:41)
[2018-02-05] MEDS: lactobacillus rhamnosus 10,000 MMU CELLS/CAPSULE PO SCH ×2 (07:41→19:50)
[2018-02-05] MEDS: DORZOLAMIDE 2% EACHEYE SCH ×2 (07:44→19:48)
[2018-02-05] MEDS: OPTH EACHEYE SCH ×3 (07:44→19:49)
[2018-02-05] MEDS: K and/or MAG REPLACEMENT MC SCH (07:45)
[2018-02-05] MEDS: potassium Cl 20 mEq SR tablet PO SCH ×2 (07:45→19:35)
[2018-02-05] MEDS: magnesium Cl slow-release 64mg tablet PO SCH ×2 (07:45→19:35)
[2018-02-05] MEDS: magnesium hydroxide 30ml (MOM) UD suspension PO PRN (07:50)
[2018-02-05] MEDS: Protein Shake (high protein) 240ml (8oz) cup PO SCH ×3 (08:00→18:00)
[2018-02-05] MEDS: insulin Lispro (HumaLOG) vial - multi-dose SQ SCH ×3 (09:00→18:00)
[2018-02-05 11:00] VITALS: BP 107/49
[2018-02-05 15:00] VITALS: BP 114/50
[2018-02-05 18:00] VITALS: BP 120/44
[2018-02-05] MEDS: XALATAN 0.005% EACHEYE SCH (19:49)
[2018-02-05] MEDS: acetaminophen 325mg tablet PO PRN (19:51)
[2018-02-05 22:00] VITALS: BP 115/55
[2018-02-06] VITALS (7 sets, daily range): BP systolic 90–121; BP diastolic 41–62
[2018-02-06] MEDS: acetaminophen 325mg tablet PO PRN ×2 (05:25→23:44)
[2018-02-06 06:19] LABS: BASOPHILS % (AUTO) 0.1 % (0-1); EOSINOPHILS # (AUTO) 0.2 X10'3 (0-0.9); EOSINOPHILS % (AUTO) 2.1 % (0-6); HEMATOCRIT 30.7 % (42.0-52.0); HEMOGLOBIN 10.4 g/dl (14.0-17.9); LYMPHOCYTES # (AUTO) 1.7 X10'3 (1.1-4.8); MEAN CORPUSCULAR HEMOGLOBIN 31.9 PG (27.0-31.0); MEAN CORPUSCULAR HGB CONC 33.9 % (33.0-36.5); MEAN CORPUSCULAR VOLUME 93.9 FL (78-98); MEAN PLATELET VOLUME 10.9 FL (7.4-10.4); MONOCYTES # (AUTO) 1.3 X10'3 (0-0.9); MONOCYTES % (AUTO) 10.7 % (2-12); NEUTROPHILS # (AUTO) 8.7 X10'3 (1.8-7.7); NEUTROPHILS % (AUTO) 73.1 % (42-75); PLATELET COUNT 99 X10'3 (140-440); RED BLOOD COUNT 3.27 X10'6 (4.70-6.10); RED CELL DISTRIBUTION WIDTH 14.1 % (11.5-14.5); WHITE BLOOD COUNT 11.9 X10'3 (4.5-11.0)
[2018-02-06 06:47] LABS: ANION GAP 8 (8-16); BLOOD UREA NITROGEN 44 MG/DL (7-18); BUN/CREATININE RATIO 23.9 (5.4-32.0); CHLORIDE 106 MMOL/L (99-107); CREATININE 1.84 MG/DL (0.60-1.10); GLUCOSE 110 MG/DL (70-104); MAGNESIUM 2.7 MG/DL (1.5-2.4); POTASSIUM 4.8 MMOL/L (3.5-5.1); SODIUM 140 MMOL/L (135-145); TOTAL CARBON DIOXIDE 26.2 MMOL/L (24-32); eGFR 36 ML/MIN
[2018-02-06] MEDS: potassium Cl 20 mEq SR tablet PO SCH ×2 (07:35→19:56)
[2018-02-06] MEDS: magnesium Cl slow-release 64mg tablet PO SCH ×2 (07:36→19:56)
[2018-02-06] MEDS: pantoprazole 40mg Tablet.DR PO SCH (07:36)
[2018-02-06] MEDS: lactobacillus rhamnosus 10,000 MMU CELLS/CAPSULE PO SCH ×2 (07:36→19:56)
[2018-02-06] MEDS: atorvastatin 10mg tablet PO SCH (07:36)
[2018-02-06] MEDS: aspirin 325mg tablet, delayed-release (Ecotrin) PO SCH (07:36)
[2018-02-06] MEDS: docusate sod 100mg capsule PO SCH ×2 (07:36→19:57)
[2018-02-06] MEDS: OPTH EACHEYE SCH ×3 (07:37→19:56)
[2018-02-06] MEDS: DORZOLAMIDE 2% EACHEYE SCH ×2 (07:37→19:56)
[2018-02-06] MEDS: K and/or MAG REPLACEMENT MC SCH (08:00)
[2018-02-06] MEDS: Protein Shake (high protein) 240ml (8oz) cup PO SCH ×3 (08:00→19:54)
[2018-02-06] MEDS: insulin Lispro (HumaLOG) vial - multi-dose SQ SCH ×3 (09:00→18:00)
[2018-02-06] MEDS: XALATAN 0.005% EACHEYE SCH (19:55)
[2018-02-07 02:00] VITALS: BP 109/48
[2018-02-07 05:25] LABS: BASOPHILS % (AUTO) 0.1 % (0-1); EOSINOPHILS # (AUTO) 0.3 X10'3 (0-0.9); HEMATOCRIT 29.2 % (42.0-52.0); HEMOGLOBIN 9.8 g/dl (14.0-17.9); LYMPHOCYTES # (AUTO) 1.8 X10'3 (1.1-4.8); LYMPHOCYTES % (AUTO) 17.9 % (21-51); MEAN CORPUSCULAR HEMOGLOBIN 31.3 PG (27.0-31.0); MEAN CORPUSCULAR HGB CONC 33.6 % (33.0-36.5); MEAN CORPUSCULAR VOLUME 93.3 FL (78-98); MEAN PLATELET VOLUME 10.5 FL (7.4-10.4); MONOCYTES # (AUTO) 1.2 X10'3 (0-0.9); MONOCYTES % (AUTO) 12.1 % (2-12); NEUTROPHILS # (AUTO) 6.9 X10'3 (1.8-7.7); NEUTROPHILS % (AUTO) 66.9 % (42-75); PLATELET COUNT 116 X10'3 (140-440); RED BLOOD COUNT 3.12 X10'6 (4.70-6.10); RED CELL DISTRIBUTION WIDTH 14.1 % (11.5-14.5); WHITE BLOOD COUNT 10.3 X10'3 (4.5-11.0)
[2018-02-07 05:38] LABS: ALBUMIN 2.7 G/DL (3.4-5.0); ANION GAP 7 (8-16); BLOOD UREA NITROGEN 41 MG/DL (7-18); BUN/CREATININE RATIO 24.3 (5.4-32.0); CHLORIDE 106 MMOL/L (99-107); CREATININE 1.69 MG/DL (0.60-1.10); GLUCOSE 109 MG/DL (70-104); MAGNESIUM 2.8 MG/DL (1.5-2.4); POTASSIUM 4.9 MMOL/L (3.5-5.1); SODIUM 139 MMOL/L (135-145); TOTAL CARBON DIOXIDE 25.8 MMOL/L (24-32); eGFR 39 ML/MIN
[2018-02-07 06:00] VITALS: BP 112/52
[2018-02-07 07:10] LABS: LARGE PLATELETS FEW; PLATELET ESTIMATE DECREASED
[2018-02-07] MEDS: docusate sod 100mg capsule PO SCH (08:00)
[2018-02-07] MEDS: K and/or MAG REPLACEMENT MC SCH (08:00)
[2018-02-07] MEDS: Protein Shake (high protein) 240ml (8oz) cup PO SCH (08:00)
[2018-02-07] MEDS: magnesium Cl slow-release 64mg tablet PO SCH (08:31)
[2018-02-07] MEDS: potassium Cl 20 mEq SR tablet PO SCH (08:31)
[2018-02-07] MEDS: pantoprazole 40mg Tablet.DR PO SCH (08:31)
[2018-02-07] MEDS: lactobacillus rhamnosus 10,000 MMU CELLS/CAPSULE PO SCH (08:31)
[2018-02-07] MEDS: atorvastatin 10mg tablet PO SCH (08:31)
[2018-02-07] MEDS: aspirin 325mg tablet, delayed-release (Ecotrin) PO SCH (08:31)
[2018-02-07] MEDS: DORZOLAMIDE 2% EACHEYE SCH (08:32)
[2018-02-07] MEDS: OPTH EACHEYE SCH (08:32)
[2018-02-07] MEDS: insulin Lispro (HumaLOG) vial - multi-dose SQ SCH (09:00)
== END 2018-02-07 12:05 | DRG 233 ==
LOC: ER 22:40 → PCU 3S 01-30 00:36 → CMPBEDREQ 01-30 02:53 → PACU 02-02 18:18 → ICU 2S 02-02 18:22 → PCU 3S 02-04 11:55
PROVIDERS: ADMIT Internal Medicine; ATTEND Internal Medicine
PROC: 4A023N7 Measurement of Cardiac Sampling and Pressure, Left Heart, Percutaneous Approach (ICD-10-PCS; 2018-01-31)
PROC: B2111ZZ Fluoroscopy of Multiple Coronary Arteries using Low Osmolar Contrast (ICD-10-PCS; 2018-01-31)
PROC: B2151ZZ Fluoroscopy of Left Heart using Low Osmolar Contrast (ICD-10-PCS; 2018-01-31)
PROC: 021109W Bypass Coronary Artery, Two Arteries from Aorta with Autologous Venous Tissue, Open Approach (ICD-10-PCS; 2018-02-02)
PROC: 06BQ4ZZ Excision of Left Saphenous Vein, Percutaneous Endoscopic Approach (ICD-10-PCS; 2018-02-02)
PROC: 5A1221Z Performance of Cardiac Output, Continuous (ICD-10-PCS; 2018-02-02)
PROC: B24BZZ4 Ultrasonography of Heart with Aorta, Transesophageal (ICD-10-PCS; 2018-02-02)
PROC: 05HM33Z Insertion of Infusion Device into Right Internal Jugular Vein, Percutaneous Approach (ICD-10-PCS; 2018-02-02)
PROC: B543ZZA Ultrasonography of Right Jugular Veins, Guidance (ICD-10-PCS; 2018-02-02)
PROC: 02100Z9 Bypass Coronary Artery, One Artery from Left Internal Mammary, Open Approach (ICD-10-PCS; principal; 2018-02-02 18:20)
DX: I25.110 Atherosclerotic heart disease of native coronary artery with unstable angina pectoris (principal); I21.4 Non-ST elevation (NSTEMI) myocardial infarction; I31.0 Chronic adhesive pericarditis; N17.9 Acute kidney failure, unspecified; I34.0 Nonrheumatic mitral (valve) insufficiency; E78.5 Hyperlipidemia, unspecified; E66.9 Obesity, unspecified; H40.9 Unspecified glaucoma; I12.9 Hypertensive chronic kidney disease with stage 1 through stage 4 chronic kidney disease, or unspecified chronic kidney disease; Z96.653 Presence of artificial knee joint, bilateral; N18.3 Chronic kidney disease, stage 3 (moderate); Z82.3 Family history of stroke; Z85.46 Personal history of malignant neoplasm of prostate; Z82.49 Family history of ischemic heart disease and other diseases of the circulatory system; Z68.35 Body mass index [BMI] 35.0-35.9, adult
CPT/HCPCS: 0232T; 93306; 93312; 93325; 93459; 99285; 36415; 36600; 71045; 80048; 80053; 80061; 82330; 82435; 82803; 82947; 82948; 83036; 83735; 84100; 84132; 84295; 84443; 84484; 85018; 85025; 85027; 85347; 85384; 85610; 85730; 86885; 86900; 86901; 86920; 87070; 93005; 93880; 93970; 94002; 94003; 94010; 94760; 97110; 97116; 97161; 97530; 99152; 99153; A4620; A6213; A6222; A6255; A6257; A6258; A6402; A6449; A7000; A7048; C1713; C1751; C1760; C1769; J0360; J0690; J1200; J1644; J1650; J1815; J2001; J2060; J2250; J2270; J2440; J2704; J3010; J3370; J3480; J3490; J7030; J7060; J7120; P9045; Q9967

== ENCOUNTER 2020-05-07 11:13 | Emergency (ER) | payer MEDICARE, BC ==
[~2020-05-07] VITALS: Ht 182.9 cm; Wt 113.6 kg
[~2020-05-07 11:13] MED LIST: DORZ10DR2 EACHEYE; XAL0.005OS EACHEYE
[2020-05-07 11:18] VITALS: BP 190/94
[2020-05-07 11:48] LABS: BASOPHILS # (AUTO) 0.1 X10'3 (0-0.2); BASOPHILS % (AUTO) 0.7 % (0-1); EOSINOPHILS # (AUTO) 0.3 X10'3 (0-0.9); EOSINOPHILS % (AUTO) 3.4 % (0-6); HEMOGLOBIN 16.3 g/dl (14.0-17.9); LYMPHOCYTES # (AUTO) 2.2 X10'3 (1.1-4.8); MEAN CORPUSCULAR HEMOGLOBIN 32.2 PG (27.0-31.0); MEAN CORPUSCULAR VOLUME 94.8 FL (78-98); MEAN PLATELET VOLUME 9.8 FL (7.4-10.4); MONOCYTES # (AUTO) 0.8 X10'3 (0-0.9); NEUTROPHILS # (AUTO) 5.6 X10'3 (1.8-7.7); NEUTROPHILS % (AUTO) 62.9 % (42-75); PLATELET COUNT 163 X10'3 (140-440); RED BLOOD COUNT 5.06 X10'6 (4.70-6.10); RED CELL DISTRIBUTION WIDTH 13.2 % (11.5-14.5)
[2020-05-07 12:08] LABS: ALANINE AMINOTRANSFERASE 24 U/L (12-78); ALBUMIN 3.9 G/DL (3.4-5.0); ALKALINE PHOSPHATASE 52 IU/L (46-116); ANION GAP 8 (8-16); ASPARTATE AMINO TRANSFERASE 21 U/L (10-37); BILIRUBIN,TOTAL 0.8 MG/DL (0.1-1.0); BLOOD UREA NITROGEN 25 MG/DL (7-18); BUN/CREATININE RATIO 14.1 (5.4-32.0); CALCIUM 9.2 MG/DL (8.5-10.1); CHLORIDE 105 MMOL/L (99-107); CREATININE 1.77 MG/DL (0.60-1.10); GLUCOSE 97 MG/DL (70-104); POTASSIUM 4.2 MMOL/L (3.5-5.1); SODIUM 139 MMOL/L (135-145); TOTAL CARBON DIOXIDE 25.6 MMOL/L (24-32); TOTAL PROTEIN 7.7 G/DL (6.4-8.2); eGFR 37 ML/MIN
== END 2020-05-07 13:38 | disposition home or self-care (01) ==
LOC: ER 11:14
DX: R20.0 Anesthesia of skin (principal); I25.2 Old myocardial infarction; Z85.9 Personal history of malignant neoplasm, unspecified; Z95.1 Presence of aortocoronary bypass graft; Z79.899 Other long term (current) drug therapy
CPT/HCPCS: 36415; 70450; 71045; 72125; 80053; 83880; 84484; 85025; 93005; 99285

== ENCOUNTER 2020-10-05 08:26 | Outpatient (CLI) | payer MEDICARE, BC | END 2020-10-05 23:59 | disposition home or self-care (01) | LOC: VAS 08:26 | PROVIDERS: ATTEND Internal Medicine | DX: E78.5 Hyperlipidemia, unspecified (principal) | CPT/HCPCS: 93882 ==

== ENCOUNTER 2022-08-01 10:15 | Emergency (ER) | payer MEDICARE, BC | END 2022-08-01 11:29 | disposition left against medical advice (07) | LOC: ER 10:15 | DX: Z04.3 Encounter for examination and observation following other accident (principal); Z53.21 Procedure and treatment not carried out due to patient leaving prior to being seen by health care provider; W19.XXXA Unspecified fall, initial encounter; Y93.89 Activity, other specified; Y92.89 Other specified places as the place of occurrence of the external cause; Y99.8 Other external cause status ==